=== PATIENT | male | born 1960 | race Caucasian/White ===

== ENCOUNTER 2020-03-27 14:49 | Observation (INO) | payer MEDICAID ==
[~2020-03-27] VITALS: Ht 180.3 cm; Wt 86.4 kg
[2020-03-27 15:27] VITALS: BP 132/75
[2020-03-27 16:16] LABS: BASOPHILS 0.2 % (0-2); EOSINOPHILS 1.1 % (0-7); HEMATOCRIT 41.5 % (42.0-54.0); HEMOGLOBIN 14.4 g/dL (13.5-17.5); IMMATURE GRANULOCYTES 0.2 % (0-5); LYMPHOCYTES 22.2 % (15-50); MCH 32.4 pg (26.0-34.0); MCHC 34.7 g/dL (31.0-37.0); MCV 93.5 fL (80.0-100.0); MEAN PLATELET VOLUME 9.8 fL (7.4-10.4); NEUTROPHILS 71.3 % (40-80); PLATELET COUNT 138 10x3/uL (130-400); RBC 4.44 10x6/uL (4.20-6.10); RDW 12.7 % (11.5-14.5); WBC 6.2 10x3/uL (4.8-10.8)
[2020-03-27 16:23] LABS: CALC OSMOLALITY 284 mosm/kg (275-300); CALCIUM 8.4 mg/dL (8.5-10.1); CARBON DIOXIDE 26.6 mmol/L (21.0-32.0); CHLORIDE - SERUM 106 mmol/L (98-107); CREATININE - SERUM 1.4 mg/dL (0.6-1.3); GLUCOSE 100 mg/dL (74-106); POTASSIUM - SERUM 3.8 mmol/L (3.5-5.1); SODIUM 142 mmol/L (136-145); UREA NITROGEN 18 mg/dL (7-18); eGFR NON AFRICAN AMERICAN 54 mL/min (90-120)
[2020-03-27 16:24] LABS: INR 1.07 (0.85-1.17); PROTIME 13.9 SECONDS (11.6-15.0)
[2020-03-27 16:40] LABS: ALBUMIN 3.5 g/dL (3.4-5.0); ALKALINE PHOSPHATASE 66 U/L (30-120); ALT (SGPT) 26 U/L (10-68); AMYLASE - SERUM 51 U/L (25-115); CKMB 4.1 U/L (0.0-3.6); CREATINE KINASE 277 UL (21-232); LIPASE 99 U/L (73-393); PROTEIN - SERUM 6.6 g/dL (6.4-8.2)
[2020-03-27 16:41] LABS: TROPONIN-I < 0.017 ng/mL (0.000-0.060)
[2020-03-27 16:45] VITALS: BP 122/82
[2020-03-27 18:52] VITALS: BP 147/67
--- NOTE | 2020-03-27 19:00 | NUR ---
REPORT TO MAGAN ALVARADO
[2020-03-27 20:00] VITALS: BP 163/80
[2020-03-27] MEDS ORDERED: AMBIEN10 MG PO (22:14)
[2020-03-27 22:15] VITALS: BP 163/80; Ht 180.3 cm; Wt 86.4 kg
[2020-03-28] VITALS (10 sets, daily range): BP systolic 115–136; BP diastolic 61–82
[2020-03-28 04:33] LABS: BASOPHILS 0 % (0-2); EOSINOPHILS 0.3 % (0-7); HEMATOCRIT 43.2 % (42.0-54.0); HEMOGLOBIN 14.8 g/dL (13.5-17.5); IMMATURE GRANULOCYTES 0.2 % (0-5); LYMPHOCYTES 7.9 % (15-50); MCHC 34.3 g/dL (31.0-37.0); MCV 93.5 fL (80.0-100.0); MEAN PLATELET VOLUME 10.1 fL (7.4-10.4); MONOCYTES 1.5 % (2-11); NEUTROPHILS 90.1 % (40-80); PLATELET COUNT 130 10x3/uL (130-400); RBC 4.62 10x6/uL (4.20-6.10); RDW 12.8 % (11.5-14.5); WBC 6.1 10x3/uL (4.8-10.8)
[2020-03-28 05:25] LABS: ALBUMIN 3.3 g/dL (3.4-5.0); ALKALINE PHOSPHATASE 67 U/L (30-120); ALT (SGPT) 22 U/L (10-68); BILIRUBIN - TOTAL 2.46 mg/dL (0.2-1.3); CALC OSMOLALITY 279 mosm/kg (275-300); CALCIUM 8.2 mg/dL (8.5-10.1); CARBON DIOXIDE 26.4 mmol/L (21.0-32.0); CHLORIDE - SERUM 106 mmol/L (98-107); CKMB 4.2 U/L (0.0-3.6); CREATINE KINASE 233 UL (21-232); CREATININE - SERUM 1.2 mg/dL (0.6-1.3); GLUCOSE 101 mg/dL (74-106); PHOSPHOROUS 2.9 mg/dL (2.5-4.9); POTASSIUM - SERUM 4.1 mmol/L (3.5-5.1); PROTEIN - SERUM 6.4 g/dL (6.4-8.2); SODIUM 140 mmol/L (136-145); TROPONIN-I < 0.017 ng/mL (0.000-0.060); UREA NITROGEN 15 mg/dL (7-18); eGFR NON AFRICAN AMERICAN 65 mL/min (90-120)
--- NOTE | 2020-03-28 07:24 | NUR ---
PT RESTING IN BED QUIETLY. RESP EVEN AND UNLABORED. PT VOICES AWAITING EGD THIS AM. REPORTS NPO SINCE MIDNIGHT. PRE OP MEDICATIONS ADMINISTERED PER MD ORDERS PER CALL FROM GI LAB. IV TO LEFT FOREARM WITH NS @ 125ML/HR INFUSING VIA PUMP. SITE WITHOUT REDNESS OR EDEMA. DENIES FURTHER NEEDS AT THIS TIME. CL WITHIN REACH. ENCOURAGED TO CALL WITH NEEDS. CONTINUE POC
--- NOTE | 2020-03-28 07:40 | NUR ---
PT TAKEN VIA BED TO GI LAB FOR EGD.
[2020-03-28] MEDS ORDERED: CARAFATE1 G PO (14:34)
[2020-03-28] MEDS ORDERED: PROTONIX40 MG PO (14:35)
--- NOTE | 2020-03-28 16:36 | NUR ---
PT IV D/C'D FROM LEFT FOREARM FOR DISCHARGE. DISCHARGE PAPERWORK DISCUSSED. DISCUSSED FOLLOW UP APPOINTMENTS AND WHEN TO RETURN TO ER. DISCUSSED NEW PRESCRIPTIONS AND WHAT PHARMACY PRESCRIPTIONS WERE CALLED TO. PT DENIES FURTHER QUESTIONS. PT AWAITING RIDE WITH FAMILY FOR DISCHARGE.
== END 2020-03-28 17:32 | disposition home or self-care (01) ==
LOC: D.ER 14:49 → OBSVTIME 18:44 → D.MS 18:44
PROVIDERS: Family Medicine; ADMIT Family Medicine; ATTEND Family Medicine
DX: K22.11 Ulcer of esophagus with bleeding (principal); R13.10 Dysphagia, unspecified; L23.7 Allergic contact dermatitis due to plants, except food; N17.9 Acute kidney failure, unspecified; I10 Essential (primary) hypertension; E03.9 Hypothyroidism, unspecified; G47.00 Insomnia, unspecified; K22.2 Esophageal obstruction; K29.70 Gastritis, unspecified, without bleeding; K44.9 Diaphragmatic hernia without obstruction or gangrene; K31.7 Polyp of stomach and duodenum